=== PATIENT | female | born 1985 | race Caucasian/White ===

== ENCOUNTER 2016-09-10 09:27 | Emergency (ER) | payer SELFPAY ==
--- NOTE | 2016-09-10 10:45 | ER Document Report ---
ED Flu Like - General Chief Complaint: Headache Stated Complaint: COUGH, HEADACHE Time seen by provider: 10:42 Mode of Arrival: Ambulatory Information source: Patient Notes: 31-year-old female presents to ED for complaints of cough headache runny nose and decreased appetite for the last 2 days. Denies any fever nausea vomiting or diarrhea. TRAVEL OUTSIDE OF THE [place] IN LAST 30 DAYS: No - HPI Onset: Other - Thursday Timing/Duration: Intermittent Quality of pain: Achy Severity: Mild Pain Level: 1 Associated symptoms: Chills, Nonproductive cough, Headache, Rhinnorhea, Sinus pain/drainage Similar symptoms previously: Yes Recently seen / treated by doctor: No Past Medical History - General Information source: Patient - Social History Smoking Status: Former Smoker Cigarette use (# per day): No - states she does state but not cigarettes Chew tobacco use (# tins/day): No Smoking Education Provided: No Frequency of alcohol use: Occasional Drug Abuse: None Occupation: does not work Lives with: Parents Family History: Arthritis, CAD, DM, Hyperlipidemia, Hypertension, Malignancy Patient has suicidal ideation: No Patient has homicidal ideation: No - Past Medical History Cardiac Medical History: Reports: None Pulmonary Medical History: Reports: Hx Bronchitis, Hx Pneumonia EENT Medical History: Reports: None Neurological Medical History: Reports: None Endocrine Medical History: Reports: None Renal/ Medical History: Reports: None Malignancy Medical History: Reports: None GI Medical History: Reports: None Musculoskeltal Medical History: Reports Hx Musculoskeletal Trauma - Fifth toe fracture and wrist sprain Skin Medical History: Reports None Psychiatric Medical History: Reports: None Traumatic Medical History: Reports: Hx Fractures - Fifth toe Infectious Medical History: Reports: None Surgical Hx: Negative Past Surgical History: Reports: None - Immunizations Hx Diphtheria, Pertussis, Tetanus Vaccination: No Review of Systems - Review of Systems Constitutional: Recent illness EENT: Nose discharge, Sinus discharge Cardiovascular: No symptoms reported Respiratory: Cough Gastrointestinal: No symptoms reported Genitourinary: No symptoms reported Female Genitourinary: No symptoms reported Musculoskeletal: No symptoms reported Skin: No symptoms reported Hematologic/Lymphatic: No symptoms reported Neurological/Psychological: Headaches -: Yes All other systems reviewed and negative Physical Exam - Vital signs Vitals: Temp Pulse Resp BP Pulse Ox 98.6 F 92 20 143/79 H 100 09/10/16 09:37 09/10/16 09:37 09/10/16 09:37 09/10/16 09:37 09/10/16 09:37 Interpretation: Normal - General General appearance: Appears well, Alert - HEENT Head: Normocephalic, Atraumatic Eyes: Normal Pupils: PERRL Ears: Normal External canal: Normal Tympanic membrane: Normal Sinus: Normal Nasal: Purulent discharge, Swelling Mouth/Lips: Normal Mucous membranes: Normal Pharynx: Post nasal drainage Neck: Normal - Respiratory Respiratory status: No respiratory distress Chest status: Nontender Breath sounds: Nonproductive cough Chest palpation: Normal - Cardiovascular Rhythm: Regular Heart sounds: Normal auscultation Murmur: No - Abdominal Inspection: Normal Distension: No distension Bowel sounds: Normal Tenderness: Nontender Organomegaly: No organomegaly - Back Back: Normal, Nontender - Extremities General upper extremity: Normal inspection, Nontender, Normal color, Normal ROM , Normal temperature General lower extremity: Normal inspection, Nontender, Normal color, Normal ROM , Normal temperature, Normal weight bearing. No: Melita's sign - Neurological Neuro grossly intact: Yes Cognition: Normal Orientation: AAOx4 [place] Coma Scale Eye Opening: Spontaneous [place] Coma Scale Verbal: Oriented [place] Coma Scale Motor: Obeys Commands [place] Coma Scale Total: 15 Speech: Normal Motor strength normal: LUE, RUE, LLE, RLE Sensory: Normal - Psychological Associated symptoms: Normal affect, Normal mood - Skin Skin Temperature: Warm Skin Moisture: Dry Skin Color: Normal Course - Vital Signs Vital signs: Temp Pulse Resp BP Pulse Ox 98.6 F 92 20 143/79 H 100 09/10/16 09:37 09/10/16 09:37 09/10/16 09:37 09/10/16 09:37 09/10/16 09:37 Discharge - Discharge Clinical Impression: Upper respiratory infection Qualifiers: URI type: unspecified URI Qualified Code(s): J06.9 - Acute upper respiratory infection, unspecified Condition: Stable Disposition: HOME, SELF-CARE Instructions: Family Physicians / Practices Additional Instructions: UPPER RESPIRATORY ILLNESS: You have a viral infection of the respiratory passages -- a "cold." This common infection causes nasal congestion, drainage, and often sore throat and cough. It is highly contagious. The disease usually lasts about 10 to 14 days. There is no "cure" for the viral infection -- it must run its course. If there is a complication, such as bacterial infection in the nose, sinuses, middle ear, or bronchial tubes, antibiotics may be required. The antibiotics won't affect the virus. Drink plenty of fluids. A humidifier may help. An expectorant medication or decongestant may make you more comfortable. Use acetaminophen or ibuprofen for fever or aches. See the doctor if fever persists over two days, if there is any significant worsening of your symptoms, or if you simply fail to improve as expected. DECONGESTANT MEDICATION: A decongestant medicine has been suggested. Often this medicine is combined in the same tablet with an antihistamine or expectorant. This type of medicine is helpful in treating a bad cold or sinus condition, as well as in treatment of the nasal congestion of hay fever. It is not of much benefit for lung infections. Decongestant medicines are related to stimulants. They can cause an increase in blood pressure and heart rate. Persons with heart disease and high blood pressure should not take decongestants without discussing this with the physician. If you develop palpitations, chest pain, headache, or tremors, stop the medicine and consult your physician. COUGH-SUPPRESSANT & EXPECTORANT MEDICATION: You are to use a cough medication as needed for relief of symptoms. This medicine is a combination of an expectorant (to make the mucous thinner and more easily "coughed up") and a cough suppressant (to reduce the frequency of coughing). The cough-suppressant medicine is related to narcotics. You may experience mild nausea and sleepiness. Some patients who are very sensitive to narcotics may have stomach pain from this medicine. Taking the medicine with food reduces these side effects. Do not drive or work with machinery until you know how this medicine affects you. The expectorant should have no side effects. Iodine-containing expectorants (such as organidin) should not be taken by persons with active thyroid disease unless approved by your doctor. Call the doctor if you develop shortness of breath, hives, rash, itching, lightheadedness, or severe nausea and vomiting. USE OF ACETAMINOPHEN (Tylenol): Acetaminophen may be taken for pain relief or fever control. It's much safer than aspirin, offering a wider range of "safe" dosages. It is safe during . Some brand names are Tylenol, Panadol, Datril, Anacin 3, Tempra, and Liquiprin. Acetaminophen can be repeated every four hours. The following are maximum recommended dosages: >89 pounds or adults 650 mg to 900 mg Acetaminophen can be repeated every four hours. Maximum dose not to exceed 4000 mg a day. FOLLOW-UP CARE: If you have been referred to a physician for follow-up care, call the physician s office for an appointment as you were instructed or within the next two days. If you experience worsening or a significant change in your symptoms, notify the physician immediately or return to the Emergency Department at any time for re-evaluation. Forms: Elevated Blood Pressure
[2016-09-10 12:07] VITALS: BP 138/89
== END 2016-09-10 12:00 | disposition home or self-care (01) ==
LOC: ER 09:27
DX: J06.9 Acute upper respiratory infection, unspecified (principal); R51 Headache; Z87.891 Personal history of nicotine dependence
CPT/HCPCS: 87804; 99283

== ENCOUNTER 2017-06-19 13:25 | Emergency (ER) | payer SELFPAY ==
[2017-06-19 14:11] VITALS: BP 123/55
--- NOTE | 2017-06-19 15:11 | ER Document Report ---
HPI - HPI Pain Level: 3 Notes: Patient is a 31-year-old female presents the ED complaining of swollen red bumps to her right axilla 2-3 days. Patient has not noticed any streaks or purulent discharge. Patient states that she has had abscesses in the past that needed incision and drainage. Patient is very adamant about not having an incision and drainage performed with packing placed if I believe that it needs it and she just wants to try p.o. antibiotics. Patient states that she is otherwise approximately 8 weeks and does have occasional nausea and vomiting in the mornings. Patient is still eating and drinking without any difficulties. She still urinating normally and having normal bowel movements. She denies any history of MRSA. Denies any drug allergies. Denies any other significant past medical history. Denies any headache, fever, neck pain, URI, sore throat, chest pain, palpitations, syncope, cough, shortness of breath, wheeze, dyspnea, abdominal pain, diarrhea, urinary retention, dysuria, hematuria , loss of control of bowel or bladder, numbness/tingling, saddle anesthesia, muscle paralysis/weakness, or rash. - ROS Notes: REVIEW OF SYSTEMS: CONSTITUTIONAL : Denies fever, chills, or sweats. Denies recent illness. EENT: Denies eye, ear, throat, or mouth pain or symptoms. Denies nasal or sinus congestion or discharge. Denies throat, tongue, or mouth swelling or difficulty swallowing. CARDIOVASCULAR: Denies chest pain. Denies palpitations or racing or irregular heart beat. RESPIRATORY: Denies cough, cold, or chest congestion. Denies shortness of breath, difficulty breathing, or wheezing. GASTROINTESTINAL: Denies abdominal pain or distention. Denies nausea, vomiting , or diarrhea. Denies blood in vomitus, stools, or per rectum. Denies black, tarry stools. Denies constipation. GENITOURINARY: Denies difficulty urinating, painful urination, burning, frequency, blood in urine, or discharge. FEMALE GENITOURINARY: Denies vaginal bleeding, heavy or abnormal periods, irregular periods. Denies vaginal discharge or odor. MUSCULOSKELETAL: Denies back or neck pain or stiffness. Denies joint pain or swelling. SKIN: see hpi NEUROLOGICAL: Denies confusion or altered mental status. Denies passing out or loss of consciousness. Denies dizziness or lightheadedness. Denies headache. Denies weakness or paralysis or loss of use of either side. Denies problems with gait or speech. Denies sensory loss, numbness, or tingling. Denies seizures. PSYCHIATRIC: Denies anxiety or stress. Denies depression, suicidal ideation, or homicidal ideation. ALL OTHER SYSTEMS REVIEWED AND NEGATIVE. Dictation was performed using [employer] voice recognition software - REPRODUCTIVE Reproductive: REPORTS: : Past Medical History - Social History Smoking Status: Unknown if Ever Smoked Family History: Arthritis, CAD, DM, Hyperlipidemia, Hypertension, Malignancy Pulmonary Medical History: Reports: Hx Bronchitis, Hx Pneumonia Renal/ Medical History: Denies: Hx Peritoneal Dialysis Musculoskeltal Medical History: Reports Hx Musculoskeletal Trauma - Fifth toe fracture and wrist sprain Traumatic Medical History: Reports: Hx Fractures - Fifth toe - Immunizations Hx Diphtheria, Pertussis, Tetanus Vaccination: No Vertical Provider Document - CONSTITUTIONAL Agree With Documented VS: Yes Notes: PHYSICAL EXAMINATION: GENERAL: Well-appearing, well-nourished and in no acute distress. A&Ox4 HEAD: Atraumatic, normocephalic. EYES: Pupils equal round and reactive to light, extraocular movements intact, sclera anicteric, conjunctiva are normal. ENT: EAC clear b/l. TM's intact b/l without erythema, fluid, or perforation. Nares patent and without discharge. oropharynx clear without exudates. No tonsilar hypertrophy or erythema. Moist mucous membranes. No sinus tenderness. NECK: Normal range of motion, supple without lymphadenopathy. No rigidity/ meningismus. LUNGS: Breath sounds clear to auscultation bilaterally and equal. No wheezes rales or rhonchi. HEART: Regular rate and rhythm without murmurs, rubs, gallops. ABDOMEN: Soft, nontender, nondistended abdomen. No guarding, no rebound. No masses appreciated. Normal bowel sounds present. No CVA tenderness bilaterally. Musculoskeletal: FROM to passive/active. Strength 5+/5. Extremities: No cyanosis, clubbing, or edema b/l. Peripheral pulses 2+. Capillary refill less than 3 seconds. NEUROLOGICAL: Cranial nerves grossly intact. Normal speech, normal gait. Normal sensory, motor exams PSYCH: Normal mood, normal affect. SKIN: 2 small 1cm cellulitis/abscesses noted to the axilla. There is a larger 1.5-2cm abscess noted as well. + tenderness. No surrounding induration, streaks, or discharge. - INFECTION CONTROL TRAVEL OUTSIDE OF THE [place] IN LAST 30 DAYS: No - RESPIRATORY O2 Sat by Pulse Oximetry: 100 Course - Re-evaluation Re-evalutation: 06/19/17 15:09 Patient is an afebrile, well-hydrated, 31-year-old female who presents the ED with abscess/cellulitis to the right axilla without evidence of lymphangitis. Vitals are stable. PE is otherwise unremarkable. I believe that the larger abscess does warrant incision and drainage with packing placement. Patient declined incision and drainage and is wants p.o. antibiotics. Risks and benefits were thoroughly reviewed and that her symptoms may worsen and progress. Patient verbalized understanding of her risks and benefits. Patient states that she will take the antibiotics and watch closely. Patient understands that she needs to return to the ED/call general surgeon with ongoing or worsening symptoms. I will send her home with a prescription for clindamycin to take as directed. Conservative measures for symptoms with close monitoring. Recheck with your PCM in 2-3 days. Consider consult with a general surgeon. Return to the ED with any worsening/concerning symptoms otherwise as reviewed in discharge. Schedule an appoint with the TELECOMMUNICATIONS PROFESSIONAL as well. Patient is in agreement. - Vital Signs Vital signs: Temp Pulse Resp BP Pulse Ox 99.3 F 75 16 123/55 L 100 06/19/17 14:10 06/19/17 14:10 06/19/17 14:10 06/19/17 14:10 06/19/17 14:10 Discharge - Discharge Clinical Impression: Abscess of right axilla Condition: Stable Disposition: HOME, SELF-CARE Instructions: Abscess ([facility]), Clindamycin ([facility]) Additional Instructions: Keep the skin clean Wash with soap and water Tylenol/ibuprofen if needed Triple antibiotic ointment daily Epsom salt soaks Take medication as directed Monitor for any worsening symptoms Recheck with your PCM in 2-3 days Consider consult with General Surgeon for ongoing/worsening symptoms Return to the ED with any worsening symptoms and/or development of fever, headache, chest pain, palpitations, syncope, shortness of breath, trouble breathing, abdominal pain, n/v/d, abscess, purulent discharge, red streaks, worsening swelling, or other worsening symptoms that are concerning to you. Prescriptions: Clindamycin HCl [Cleocin 300 mg Capsule] 300 mg PO TID #30 capsule Ondansetron [Zofran Odt 4 mg Tablet] 1 - 2 tab PO Q4H PRN #15 tab.rapdis PRN Reason: For Nausea/Vomiting Referrals: BERNARDO MCGILL MD [ACTIVE STAFF] - Follow up as needed TORRES SILVA MD [ACTIVE STAFF] - Follow up as needed [facility] [Provider Group] - Follow up as needed
[2017-06-19] MEDS ORDERED: CLINDAMYCIN HCL 150 MG CAPSULE PO ONE (15:15)
== END 2017-06-19 15:37 | disposition home or self-care (01) ==
LOC: ER 13:25
DX: O99.719 Diseases of the skin and subcutaneous tissue complicating pregnancy, unspecified trimester (principal); L02.411 Cutaneous abscess of right axilla; L03.111 Cellulitis of right axilla; O21.9 Vomiting of pregnancy, unspecified; Z3A.00 Weeks of gestation of pregnancy not specified
CPT/HCPCS: 99282

== ENCOUNTER 2017-08-25 08:35 | Observation (INO) | payer SELFPAY ==
--- NOTE | 2017-08-25 09:42 | ER Document Report ---
HPI - HPI Patient complains to provider of: pelvic pain Onset: Yesterday Onset/Duration: Gradual Quality of pain: Cramping, Sharp Pain Level: 4 Context: Patient states she is currently 18 weeks and developed pelvic pain and vaginal bleeding yesterday. Patient states bleeding has been off and on. Patient is currently . Patient has not had any care because she states that she lost her identification and has been having difficulty obtaining identification so that she could be followed at the health department to get care established. Patient does take Subutex for chronic pain, and has had monthly prescriptions filled for the past several months. Patient states she did not take the Subutex today and that her chronic pain management provider told her that she could have something for pain if she had not taken the Subutex. Associated Symptoms: Other - Pelvic pain Exacerbated by: Denies Relieved by: Denies Similar symptoms previously: No Recently seen / treated by doctor: No - ROS ROS below otherwise negative: Yes Systems Reviewed and Negative: Yes All other systems reviewed and negative - CONSTITUTIONAL Constitutional: DENIES: Fever, Chills - NEURO Neurology: DENIES: Weakness - GASTROINTESTINAL Gastrointestinal: REPORTS: Abdominal Pain - REPRODUCTIVE Reproductive: REPORTS: :, Abnormal bleeding / discharge - DERM Skin Color: Normal Skin Problems: None Past Medical History - General Information source: Patient Last Menstrual Period: 04/12/17 - Social History Smoking Status: Current Every Day Smoker Chew tobacco use (# tins/day): No Frequency of alcohol use: None Drug Abuse: None Occupation: Cleaning Lives with: Family Family History: Arthritis, CAD, DM, Hyperlipidemia, Hypertension, Malignancy Patient has suicidal ideation: No Patient has homicidal ideation: No Pulmonary Medical History: Reports: Hx Bronchitis, Hx Pneumonia Renal/ Medical History: Denies: Hx Peritoneal Dialysis Musculoskeltal Medical History: Reports Hx Musculoskeletal Trauma - Fifth toe fracture and wrist sprain Traumatic Medical History: Reports: Hx Fractures - Fifth toe Surgical Hx: Negative - Immunizations Hx Diphtheria, Pertussis, Tetanus Vaccination: No Vertical Provider Document - CONSTITUTIONAL Agree With Documented VS: Yes Exam Limitations: No Limitations General Appearance: WD/WN, No Apparent Distress - INFECTION CONTROL TRAVEL OUTSIDE OF THE [place] IN LAST 30 DAYS: No - HEENT HEENT: Atraumatic, Normocephalic - NECK Neck: Normal Inspection. negative: Lymphadenopathy-Left, Lymphadenopathy-Right - RESPIRATORY Respiratory: Breath Sounds Normal, No Respiratory Distress O2 Sat by Pulse Oximetry: 100 - CARDIOVASCULAR Cardiovascular: Regular Rate, Regular Rhythm, No Murmur - GI/ABDOMEN Gastrointestinal: Abdomen Soft, Abdomen Tender - lower pelvic, No Organomegaly, Normal Bowel Sounds - BACK Back: Abnormal Inspection - Lower lumbar paraspinal tenderness. negative: CVA Tenderness-Right, CVA Tenderness-Left - MUSCULOSKELETAL/EXTREMETIES Musculoskeletal/Extremeties: MAEW, FROM - NEURO Level of Consciousness: Awake, Alert, Appropriate Motor/Sensory: No Motor Deficit - DERM Integumentary: Warm, Dry, No Rash Course - Re-evaluation Re-evalutation: 08/25/17 11:[address] Prieto, Dr. Prieto states that she will admit the patient to the second floor. Discussed patient's history of Subutex use and patient is insistent request for additional pain medication. Does recommend giving patient pain medication, recommends giving patient morphine. - Vital Signs Vital signs: Temp Pulse Resp BP Pulse Ox 97.8 F 72 14 136/78 H 100 08/25/17 08:39 08/25/17 08:39 08/25/17 08:39 08/25/17 08:39 08/25/17 08:39 - Laboratory Result Diagrams: 08/25/17 10:07 08/25/17 10:07 Laboratory results interpreted by me: 08/25/17 11:39 Labs- Entire Visit 08/25/17 08/25/17 08/25/17 09:30 10:07 10:07 WBC 7.4 RBC 3.91 Hgb 12.2 Hct 35.3 L MCV 90 MCH 31.1 MCHC 34.5 RDW 13.7 Plt Count 287 Seg Neutrophils % 60.9 Lymphocytes % 30.1 Monocytes % 6.4 Eosinophils % 2.1 Basophils % 0.5 Absolute Neutrophils 4.5 Absolute Lymphocytes 2.2 Absolute Monocytes 0.5 Absolute Eosinophils 0.2 Absolute Basophils 0.0 Sodium 140.8 Potassium 3.9 Chloride 103 Carbon Dioxide 28 Anion Gap 10 BUN 6 L Creatinine 0.55 Est GFR ( Amer) > 60 Est GFR (Non-Af Amer) > 60 Glucose 74 L Calcium 10.1 Total Bilirubin 0.3 Direct Bilirubin 0.3 Neonat Total Bilirubin Not Reportable Neonat Direct Bilirubin Not Reportable Neonat Indirect Bili Not Reportable AST 23 ALT 20 Alkaline Phosphatase 82 Total Protein 7.7 Albumin 4.4 Beta HCG, Quant 560.90 H Total Beta HCG POSITIVE Urine Color COLORLESS Urine Appearance CLEAR Urine pH 7.0 Ur Specific [place] 1.001 Urine Protein NEGATIVE Urine Glucose (UA) NEGATIVE Urine Ketones NEGATIVE Urine Blood NEGATIVE Urine Nitrite NEGATIVE Urine Bilirubin NEGATIVE Urine Urobilinogen NEGATIVE Ur Leukocyte Esterase NEGATIVE Urine WBC (Auto) 1 Urine RBC (Auto) 0 Squamous Epi Cells Auto <1 Urine Mucus (Auto) RARE Urine Ascorbic Acid NEGATIVE Blood Type Rhogam Indicated 08/25/17 10:07 WBC RBC Hgb Hct MCV MCH MCHC RDW Plt Count Seg Neutrophils % Lymphocytes % Monocytes % Eosinophils % Basophils % Absolute Neutrophils Absolute Lymphocytes Absolute Monocytes Absolute Eosinophils Absolute Basophils Sodium Potassium Chloride Carbon Dioxide Anion Gap BUN Creatinine Est GFR ( Amer) Est GFR (Non-Af Amer) Glucose Calcium Total Bilirubin Direct Bilirubin Neonat Total Bilirubin Neonat Direct Bilirubin Neonat Indirect Bili AST ALT Alkaline Phosphatase Total Protein Albumin Beta HCG, Quant Total Beta HCG Urine Color Urine Appearance Urine pH Ur Specific [place] Urine Protein Urine Glucose (UA) Urine Ketones Urine Blood Urine Nitrite Urine Bilirubin Urine Urobilinogen Ur Leukocyte Esterase Urine WBC (Auto) Urine RBC (Auto) Squamous Epi Cells Auto Urine Mucus (Auto) Urine Ascorbic Acid Blood Type A POSITIVE Rhogam Indicated RHOGAM NOT INDICATED - Diagnostic Test Radiology reviewed: Reports reviewed Discharge - Discharge Clinical Impression: demise, Pelvic pain Condition: Stable Disposition: ADMITTED INPATIENT Admitting Provider: [facility] Admitted: Post
[2017-08-25 10:03] LABS: APPEARANCE,URINE CLEAR; BILIRUBIN,URINE NEGATIVE (NEGATIVE); COLOR,URINE COLORLESS; GLUCOSE, URINE NEGATIVE (NEGATIVE); KETONES,URINE NEGATIVE (NEGATIVE); LEUKOCYTE ESTERASE,URINE NEGATIVE (NEGATIVE); NITRITE,URINE NEGATIVE (NEGATIVE); PROTEIN,URINE NEGATIVE (NEGATIVE); URINE SPECIFIC GRAVITY 1.001; UROBILINOGEN,URINE NEGATIVE mg/dL (<2.0)
[2017-08-25] MEDS ORDERED: ACETAMINOPHEN 325 MG TABLET PO ONE (10:12)
--- NOTE | 2017-08-25 10:25 | RADIOLOGY REPORT (SQ) ---
EXAM DESCRIPTION: U/S OB LIMITED COMPLETED DATE/TIME: 08/25/2017 10:11 am REASON FOR STUDY: pelvic pain, vag bleeding COMPARISON: None. TECHNIQUE: Static and Dynamic grayscale imaging performed of gravid uterus using transabdominal appr oach. Additional selected color Doppler and spectral images recorded. All stored on PACS. LIMITATIONS: A full anatomic survey was not performed. FINDINGS: EGA: 16 week 6 day. MARIS: 02/03/2016. EFW: 171 g. grams SLAVA: Adequate amount. HEART RATE: No cardiac activity. CERVICAL LENGTH: 3.8 cm. Closed. IMPRESSION: INTRAUTERINE DEMISE. ESTIMATED GESTATIONAL AGE 16 WEEK 6 DAY. Trimester of : Second trimester - 13 weeks 1 day to 27 weeks 6 days. TECHNICAL DOCUMENTATION: JOB ID: [id number] [employer]- All Rights Reserved
[2017-08-25 10:34] LABS: ABSOLUTE EOSINOPHILS # (AUTO) 0.2 10^3/uL (0.0-0.6); ABSOLUTE LYMPHOCYTES (AUTO) 2.2 10^3/uL (0.5-4.7); ABSOLUTE MONOCYTES (AUTO) 0.5 10^3/uL (0.1-1.4); ABSOLUTE NEUT (AUTO) 4.5 10^3/uL (1.7-8.2); BASOPHILS % (AUTO) 0.5 % (0-2); EOSINOPHILS % (AUTO) 2.1 % (0-6); HEMATOCRIT 35.3 % (36.0-47.0); HEMOGLOBIN 12.2 g/dL (12.0-15.5); LYMPHOCYTES % (AUTO) 30.1 % (13-45); MEAN CORPUSCULAR HEMOGLOBIN 31.1 pg (27.0-33.4); MEAN CORPUSCULAR HGB CONC 34.5 g/dL (32.0-36.0); MEAN CORPUSCULAR VOLUME 90 fl (80-97); MONOCYTES % (AUTO) 6.4 % (3-13); PLATELET COUNT 287 10^3/uL (150-450); RED BLOOD COUNT 3.91 10^6/uL (3.72-5.28); RED CELL DISTRIBUTION WIDTH 13.7 % (11.5-14.0); SEGMENTED NEUTROPHILS % (AUTO) 60.9 % (42-78); TOTAL CELLS COUNTED % (AUTO) 100 %; WHITE BLOOD COUNT 7.4 10^3/uL (4.0-10.5)
[2017-08-25 10:53] LABS: ALANINE AMINOTRANSFERASE 20 U/L (9-52); ALBUMIN 4.4 g/dL (3.5-5.0); ALKALINE PHOSPHATASE 82 U/L (38-126); ANION GAP 10 (5-19); ASPARTATE AMINO TRANSFERASE 23 U/L (14-36); BILIRUBIN,DIRECT 0.3 mg/dL (0.0-0.4); BILIRUBIN,TOTAL 0.3 mg/dL (0.2-1.3); BLOOD UREA NITROGEN 6 mg/dL (7-20); CALCIUM 10.1 mg/dL (8.4-10.2); CARBON DIOXIDE 28 mmol/L (22-30); CHLORIDE 103 mmol/L (98-107); GLUCOSE 74 mg/dL (75-110); POTASSIUM 3.9 mmol/L (3.6-5.0); SODIUM 140.8 mmol/L (137-145); TOTAL PROTEIN 7.7 g/dL (6.3-8.2)
[2017-08-25] MEDS ORDERED: MORPHINE SULFATE 10 MG/ML INJ IV ONE (11:39)
[2017-08-25] MEDS ORDERED: HYDROMORPHONE HCL INJ/PF 2 MG/ML AMPULE IV ONE (11:50)
--- NOTE | 2017-08-25 14:43 | PDOC H&P ---
History of Present Illness Admission Date/PCP: 08/25/17 12:18 Patient complains of: spotting and some cramping History of Present Illness: CALI HAN is a 32 year old female @ 18 wk EGA who presented to the ER this AM w/ complaints of vaginal bleeding and cramping. Sono revealed a fetus measuring 16 6/7 w/ absent heart motion. Patient is complaining of increased pain and cramping but no further bleeding Past Medical History Pulmonary Medical History: Reports: Bronchitis, Pneumonia Musculoskeltal Medical History: Reports: Other - scoliosis Psychiatric Medical History: Reports: Substance Abuse Psychiatric History Note: on suboxone for opiod dependency. Past Surgical History Past Surgical History: Reports: None Social History Information Source: Patient Smoking Status: Current Every Day Smoker Cigarettes Packs Per Day: 2 Frequency of Alcohol Use: None Hx Recreational Drug Use: Yes - denies any current ilicit drug use Drugs: None - Advance Directive Resuscitation Status: Full Code Family History Family History: Arthritis, CAD, DM, Hyperlipidemia, Hypertension, Malignancy Parental Family History Reviewed: Yes Children Family History Reviewed: Yes Sibling(s) Family History Reviewed.: Yes Medication/Allergy Home Medications: Buprenorphine HCl [Subutex 8 mg Sublingual Tablet] 1 tab SL DAILY 08/25/17 No122/Iron/Folic Acid [ Multi Tablet] 1 tab PO DAILY 08/25/17 Allergies/Adverse Reactions: No Known Allergies Allergy (Verified 08/25/17 08:36) Physical Exam - Physical Exam Vital Signs: Temp Pulse Resp BP Pulse Ox 98.4 F 87 22 H 113/69 100 08/25/17 13:52 08/25/17 13:52 08/25/17 13:52 08/25/17 13:52 08/25/17 13:52 Result Impressions: Obstetrics Ultrasound 08/25/17 09:17 IMPRESSION: INTRAUTERINE DEMISE. ESTIMATED GESTATIONAL AGE 16 WEEK 6 DAY. Trimester of : Second trimester - 13 weeks 1 day to 27 weeks 6 days. Assessment & Plan - Diagnosis (1) demise Is this a current diagnosis for this admission?: Yes (2) Pelvic pain Is this a current diagnosis for this admission?: Yes - Time Time Spent: 30 to 50 Minutes Anticipated discharge: Home Within: within 48 hours - Inpatient Certification Based on my medical assessment, after consideration of the patient's comorbidities, presenting symptoms, or acuity I expect that the services needed warrant INPATIENT care.: Yes I certify that my determination is in accordance with my understanding of Medicare's requirements for reasonable and necessary INPATIENT services [42 CFR 412.3e].: Yes Medical Necessity: Need Close Monitoring Due to Risk of Patient Decompensation, Risk of Complication if Not Cared For in Hospital - Plan Summary Plan Summary: will initiate delivery of POC with cytotec. D/W patient regarding her pain control and she voices understanding that good pain control will be difficult in light of her opiod addiction treatment due to receptor saturation. Did assure her that we would do our best to make her as comfortable as possible but a pain free state would be highly unlikely. Voiced understanding. Counseled on possibility of a procedure if unsuccessful with medical management including D&C for removal of tissue or placenta. Voiced understanding
[2017-08-25] MEDS ORDERED: PROMETHAZINE HCL INJ 25 MG/1 ML VIAL IV PRN (14:44)
[2017-08-25] MEDS ORDERED: HYDROMORPHONE HCL INJ/PF 2 MG/ML AMPULE IV PRN (14:44)
[2017-08-25] MEDS ORDERED: OXYCODONE-ACETAMINOPHEN 5-325 MG TABLET PO PRN (14:44)
[2017-08-25] MEDS ORDERED: DEXTROSE 40% GEL 15 GM TUBE PO PRN ×2 (14:57)
[2017-08-25] MEDS ORDERED: GLUCAGON,HUMAN RECOMB 1 MG INJ SUBCUT PRN (14:57)
[2017-08-25] MEDS ORDERED: DEXTROSE 50%-WATER 25 GM/50 ML DISP.SYRIN IV PRN ×2 (14:57)
[2017-08-25] MEDS: HYDROMORPHONE HCL INJ/PF 2 MG/ML AMPULE IV PRN ×2 (16:26→21:15)
[2017-08-25] MEDS: MISOPROSTOL 0.2 MG TABLET PR SCH ×2 (16:28→21:27)
[2017-08-25] MEDS: OXYCODONE-ACETAMINOPHEN 5-325 MG TABLET PO PRN (18:54)
[2017-08-25] MEDS: ACETAMINOPHEN 100 ML IV SCH (21:27)
[2017-08-26] MEDS: RINGERS SOLUTION,LACTATED 1,000 ML IV PRN ×2 (00:04→07:08)
[2017-08-26] MEDS ORDERED: MISOPROSTOL 0.2 MG TABLET ONE (01:35)
[2017-08-26] MEDS: MISOPROSTOL 0.2 MG TABLET PR SCH ×2 (01:37→06:47)
[2017-08-26] MEDS: HYDROMORPHONE HCL INJ/PF 2 MG/ML AMPULE IV PRN ×3 (02:15→10:13)
[2017-08-26] MEDS: OXYCODONE-ACETAMINOPHEN 5-325 MG TABLET PO PRN ×2 (04:17→08:26)
[2017-08-26] MEDS: ACETAMINOPHEN 100 ML IV SCH ×2 (05:28→13:00)
[2017-08-26] MEDS ORDERED: MISOPROSTOL 0.2 MG TABLET PV SCH (10:00)
--- NOTE | 2017-08-26 10:30 | Progress Note ---
Provider Note Provider Note: S:CNM called to room, pt delivering demised fetus. Cord clamped, fetus cut free , pt assisted to bathroom, spontaneous delivery of placenta. Pt assisted back to bed O:VSS, afebrile fundus firm Bleeding stable A: s/p delivery of 16 week iufd Stable condition P: Pt to have lunch Monitor bleeding Consider discharge later today
[2017-08-26 11:41] LABS: INTERNATIONAL RATION (INR) 0.94; PROTHROMBIN TIME 13.3 SEC (11.4-15.4)
[2017-08-26 11:42] LABS: PARTIAL THROMBOPLASTIN TIME 32.5 SEC (23.5-35.8)
[2017-08-26] MEDS ORDERED: MISOPROSTOL 0.2 MG TABLET PO SCH (12:00)
[2017-08-26 12:56] VITALS: BP 125/76
--- NOTE | 2017-08-31 11:57 | PDOC DISCHARGE SUMMARY ---
Final Diagnosis Discharge Date: 08/26/17 - Final Diagnosis (1) demise Is this a current diagnosis for this admission?: Yes Discharge Data - Discharge Medication Home Medications: Buprenorphine HCl [Subutex 8 mg Sublingual Tablet] 1 tab SL DAILY 08/25/17 No122/Iron/Folic Acid [ Multi Tablet] 1 tab PO DAILY 08/25/17 Procedures: None Intrapartum Procedure(s): Spontaneous Vaginal Delivery - Diagnosis Test Laboratory: Temp Pulse Resp BP Pulse Ox 98.9 F 75 18 125/76 99 08/26/17 13:11 08/26/17 13:11 08/26/17 13:11 08/26/17 13:11 08/26/17 13:11 - Discharge information/Instructions Discharge Activity: Activity As Tolerated, Pelvic Rest, No tub bath Discharge Diet: As Tolerated Disposition: HOME, SELF-CARE Follow up with: [facility] in: 1
== END 2017-08-26 15:05 | disposition home or self-care (01) ==
LOC: ER 08:35 → EH 12:18 → INTOOBSV 12:18 → 2N 13:28
PROVIDERS: ADMIT Obstetrics & Gynecology; ATTEND Obstetrics & Gynecology
DX: O02.1 Missed abortion (principal); O99.332 Smoking (tobacco) complicating pregnancy, second trimester; F17.210 Nicotine dependence, cigarettes, uncomplicated; O99.322 Drug use complicating pregnancy, second trimester; F11.20 Opioid dependence, uncomplicated; G89.29 Other chronic pain; M41.9 Scoliosis, unspecified; O09.32 Supervision of pregnancy with insufficient antenatal care, second trimester; Z3A.16 16 weeks gestation of pregnancy
CPT/HCPCS: 99285; 96374; 86900; 86901; 36415 ×2; 84702; 85025; 85610; 85730; 80053; 81001; 76815; G0378 ×2; J1170 ×2; J7120; J0131

== ENCOUNTER 2018-01-26 16:10 | Emergency (ER) | payer SELFPAY ==
--- NOTE | 2018-01-26 18:03 | ER Document Report ---
HPI - HPI Pain Level: 2 Notes: Patient is a 32-year-old female no significant past medical history who presents to the ED complaining of redness and swelling to her right axilla which she believes is an abscess that has been there over the last several days. Patient states that she believes it is starting to get better, but wanted it looked at. Patient states that her pain does not radiate and she has not noticed any red streaking. Patient states that on occasion she will have some nausea but has not been vomiting. She is eating and drinking without any difficulties. She is urinating normally and having normal bowel movements. Patient states that she does have a concern for possible bacterial vaginosis that she had this in the past. Patient states that she has not been sexually active in the last 4-5 months. She has not had any vaginal bleeding. Denies any headache, fever, neck pain, URI, sore throat, chest pain, palpitations, syncope, cough, shortness of breath, wheeze, dyspnea, abdominal pain, nausea/ vomiting/diarrhea, urinary retention, dysuria, hematuria. - ROS Systems Reviewed and Negative: Yes All other systems reviewed and negative - REPRODUCTIVE Reproductive: REPORTS: Abnormal bleeding / discharge - discharge and odor. DENIES: : Past Medical History - Social History Smoking Status: Current Every Day Smoker Chew tobacco use (# tins/day): No Frequency of alcohol use: None Drug Abuse: None Family History: Arthritis, CAD, DM, Hyperlipidemia, Hypertension, Malignancy Patient has suicidal ideation: No Patient has homicidal ideation: No Pulmonary Medical History: Reports: Hx Bronchitis, Hx Pneumonia Renal/ Medical History: Denies: Hx Peritoneal Dialysis Musculoskeletal Medical History: Reports Hx Musculoskeletal Trauma - Fifth toe fracture and wrist sprain Psychiatric Medical History: Denies: Hx Depression Traumatic Medical History: Reports: Hx Fractures - Fifth toe - Immunizations Hx Diphtheria, Pertussis, Tetanus Vaccination: No Vertical Provider Document - CONSTITUTIONAL Agree With Documented VS: Yes Notes: PHYSICAL EXAMINATION: GENERAL: Well-appearing, well-nourished and in no acute distress. LUNGS: Breath sounds clear to auscultation bilaterally and equal. No wheezes rales or rhonchi. HEART: Regular rate and rhythm without murmurs, rubs, gallops. ABDOMEN: Soft, nontender, nondistended abdomen. No guarding, no rebound. No masses appreciated. Normal bowel sounds present. No CVA tenderness bilaterally. : deferred, pt declined and just wants to perform self-swabs. Musculoskeletal: FROM to passive/active. Strength 5+/5. Extremities: No cyanosis, clubbing, or edema b/l. Peripheral pulses 2+. Capillary refill less than 3 seconds. NEUROLOGICAL: Cranial nerves grossly intact. Normal speech, normal gait. Normal sensory, motor exams PSYCH: Normal mood, normal affect. SKIN: + 2.5cm abscess with induration and minimal fluctuance to the rt axilla. + tenderness. No streaks or discharge. - INFECTION CONTROL TRAVEL OUTSIDE OF THE [place] IN LAST 30 DAYS: No Course - Re-evaluation Re-evalutation: 01/26/18 18:03 I did review with patient that I would like to perform a complete incision and drainage to her right axilla abscess. Patient is very adamant that she does not like needles or scalpels. Pt does not want any I&D performed. I was able to review with her the risk and benefit of her decision and that this issue could become worse and she could be put in the hospital with sepsis. Patient then agreed to have an incision and drainage performed with a needle only at this time. 01/26/18 20:07 Patient is an afebrile, well-hydrated, 32-year-old female who presents to the ED with bacterial vaginosis and abscess to rt axilla who is also found to be despite her claim of not being sexually active. Vitals are acceptable without any significant tachycardia, tachypnea, or hypoxia. PE is otherwise unremarkable. Wound cx obtained. I&D performed with 18g needle. Again reviewed with patient that it would be better for a complete I&D, but pt declined and would not allow me much time to express any purulence from within. UA unremarkable. Urine HCG showed positive despite pt saying she has not been sexually active in 4-5mos. HCG quant ordered and positive. See wet mount results. Chlam/gonorrhea tests are pending. Patient declined wanting any treatment for chlamydia/gonorrhea at this time and is aware that she may have the return if any test comes back positive. Patient is nontoxic-appearing is tolerating p.o. without any difficulties. Abd is soft and non-tender. No other labs or imaging warranted at this time based on H&P. Low suspicion/risk for acute appendicitis, bowel obstruction, acute cholecystitis, acute cholangitis, perforated diverticulitis, incarcerated hernia, pancreatitis, perforated ulcer, peritonitis, sepsis, pelvic inflammatory disease, ectopic , tubo-ovarian abscess, ovarian torsion, or other systemic emergent condition at this time. Patient is aware that her condition can change from initial presentation and she needs to monitor symptoms closely and seek medical attention if any acute changes. I will send her home with prescription for Flagyl, cleocin. Conservative measures otherwise for symptoms. Recheck with your PCM in 48 hours and OBGYN in 3-5 days. Return to the ED with any worsening /concerning symptoms otherwise as reviewed in discharge. Patient is in agreement. - Vital Signs Vital signs: Temp Pulse Resp BP Pulse Ox 98.4 F 70 18 123/71 97 01/26/18 16:20 01/26/18 16:20 01/26/18 16:20 01/26/18 16:20 01/26/18 16:20 Procedures - Incision and Drainage Rt axilla Time completed: 19:05 - pt tolerated proc well, no complications, but pt would not allow for adequate expression of contents Type: Simple I&D procedure: Betadine prep applied Incision Method: Incision made with needle - 18g Amount/type of drainage: scant purulent/bloody Discharge - Discharge Clinical Impression: Abscess, Bacterial vaginosis Condition: Stable Disposition: HOME, SELF-CARE Instructions: Abscess ([facility]), Cephalexin ([facility]), Trimethoprim-Sulfa ([facility]), Vaginosis, Bacterial ([facility]) Additional Instructions: You declined a complete incision and drainage today. As a reminder, your infection could worsen which could result in sepsis and severe illness which may require hospitalization and management. Keep the skin clean Wash with soap and water Tylenol/ibuprofen if needed Triple antibiotic ointment daily Take medication as directed Monitor for any worsening symptoms Recheck with your PCM in 48 hours Consider consult with General Surgeon for ongoing/worsening symptoms Maintain fluid intake Proper hygenic technique Keep the skin clean Safe sexual practices with condoms everytime Tylenol/ibuprofen as needed Check in with the health department this week for further testing if warranted Your chlamydia/Ghon test are pending and you will be notified if positive results; you may call in 1 day for the results as well Return immediately if symptoms worsen F/u with your OBGYN in 3-5 days for a recheck Return to the ED with any worsening symptoms and/or development of fever, headache, chest pain, palpitations, syncope, shortness of breath, trouble breathing, abdominal pain, n/v/d, abscess, purulent discharge, red streaks, worsening swelling, pelvic pain, increased vaginal discharge/odor/bleeding, or other worsening symptoms that are concerning to you. Prescriptions: Clindamycin HCl [Cleocin 300 mg Capsule] 300 mg PO TID #30 capsule Metronidazole [Flagyl] 500 mg PO BID #14 tablet Forms: Smoking Cessation Education Referrals: [facility]Provider Group[facility] - Follow up in 3-5 days Family Doctor, Your [Other] - 01/28/18
[2018-01-26 18:36] LABS: APPEARANCE,URINE CLEAR; BILIRUBIN,URINE NEGATIVE (NEGATIVE); COLOR,URINE YELLOW; GLUCOSE, URINE NEGATIVE (NEGATIVE); KETONES,URINE NEGATIVE (NEGATIVE); LEUKOCYTE ESTERASE,URINE NEGATIVE (NEGATIVE); NITRITE,URINE NEGATIVE (NEGATIVE); PROTEIN,URINE NEGATIVE (NEGATIVE)
[2018-01-26 18:52] LABS: BACTERIA (WET MOUNT) 4+ BACTERIA SEEN; EPITHELIALS (WET MOUNT) 3+ EPITHELIALS SEEN; T.VAGINALIS (WET MOUNT) NO TRICHOMONAS SEEN; WBCS (WET MOUNT) 1+ WBCS SEEN; YEAST (WET MOUNT) NO YEAST SEEN
[2018-01-26 20:11] LABS: CHLAM PCR NOT DETECTED (NOT DETECT); GON PCR NOT DETECTED (NOT DETECT)
[2018-01-26 20:20] VITALS: BP 132/87
== END 2018-01-26 20:19 | disposition home or self-care (01) ==
LOC: ER 16:10
PROC: 0H9BXZZ Drainage of Right Upper Arm Skin, External Approach (ICD-10-PCS; principal; 2018-01-26)
DX: L02.411 Cutaneous abscess of right axilla (principal); N76.0 Acute vaginitis; B96.89 Other specified bacterial agents as the cause of diseases classified elsewhere; F17.200 Nicotine dependence, unspecified, uncomplicated
CPT/HCPCS: 36415; 81001; 81025; 84702; 87070; 87075; 87077; 87186; 87205; 87210; 87491; 87591; 99283

== ENCOUNTER 2018-07-19 08:11 | Emergency (ER) | payer SELFPAY ==
[2018-07-19] MEDS ORDERED: PENICILLIN V POTASSIUM 500 MG TABLET PO ONE (09:18)
[2018-07-19] MEDS ORDERED: LIDOCAINE 2% VISCOUS SOLN 20 ML UDCUP PO ONE (09:18)
--- NOTE | 2018-07-19 09:18 | ER Document Report ---
ED Oral Problem - General Chief Complaint: Sore Throat Stated Complaint: SORE THROAT, TOOTHACHE Time Seen by Provider: 07/19/18 09:02 Mode of Arrival: Ambulatory Information source: Patient Notes: 33-year-old female presents to ED for complaint of sore throat times 2 days with cough congestion. She also has multiple decayed teeth that are broken off at the gumline. She has redness and inflammation around these teeth. She is complaining of severe pain to the upper left jaw where she has multiple decayed teeth. She states this started when she was with her son. She states she also eats candy and sweet drinks all day. Patient is alert oriented respirations regular and unlabored speaking in full sentences TRAVEL OUTSIDE OF THE [place] IN LAST 30 DAYS: No - HPI Patient complains to provider of: Toothache Onset: Other - Dental pain long time sore throat 2 days Onset: Gradual Quality of pain: Sharp, Throbbing Severity: Moderate Pain Level: 2 Associated symptoms: Toothache Worsened by: Nothing Relieved by: Nothing Similar symptoms previously: Yes Recently seen / treated by doctor/dentist: No - Related Data Allergies/Adverse Reactions: codeine Allergy (Unknown, Verified 07/19/18 08:24) Past Medical History - General Information source: Patient - Social History Smoking Status: Former Smoker - States she just quit smoking because of her teeth Chew tobacco use (# tins/day): No Frequency of alcohol use: None Drug Abuse: None Lives with: Family Family History: Arthritis, CAD, DM, Hyperlipidemia, Hypertension, Malignancy Patient has suicidal ideation: No Patient has homicidal ideation: No - Past Medical History Cardiac Medical History: Reports: None Pulmonary Medical History: Reports: Hx Bronchitis, Hx Pneumonia EENT Medical History: Reports: None Neurological Medical History: Reports: None Endocrine Medical History: Reports: None Renal/ Medical History: Reports: None Malignancy Medical History: Reports: None GI Medical History: Reports: None Musculoskeletal Medical History: Reports Hx Musculoskeletal Trauma - Fifth toe fracture and wrist sprain Skin Medical History: Reports Hx Eczema Psychiatric Medical History: Reports: None Traumatic Medical History: Reports: Hx Fractures - Fifth toe Infectious Medical History: Reports: None - Immunizations Hx Diphtheria, Pertussis, Tetanus Vaccination: No Review of Systems - Review of Systems Constitutional: No symptoms reported EENT: No symptoms reported, Dental problem Cardiovascular: No symptoms reported Respiratory: No symptoms reported Gastrointestinal: No symptoms reported Genitourinary: No symptoms reported Female Genitourinary: No symptoms reported Musculoskeletal: No symptoms reported Skin: No symptoms reported Hematologic/Lymphatic: No symptoms reported Neurological/Psychological: No symptoms reported -: Yes All other systems reviewed and negative Physical Exam - Vital signs Vitals: Temp Pulse Resp BP Pulse Ox 98.7 F 62 16 115/73 100 07/19/18 08:28 07/19/18 08:28 07/19/18 08:28 07/19/18 08:28 07/19/18 08:28 Interpretation: Normal - General General appearance: Appears well, Alert - HEENT Head: Normocephalic, Atraumatic Eyes: Normal Pupils: PERRL Ears: Normal External canal: Normal Tympanic membrane: Normal Sinus: Normal Nasal: Purulent discharge, Swelling Mouth/Lips: Caries Mucous membranes: Normal Teeth diagram: 1 - Entire mouth has multiple decayed teeth that are broken at the gumline and black. She has moderate gingivitis throughout all teeth. She does have a severe pain in the left upper jaw even though the left lower jaw looks more tender and has more decayed teeth. Pharynx: Post nasal drainage - Respiratory Respiratory status: No respiratory distress Chest status: Nontender Breath sounds: Normal Chest palpation: Normal - Cardiovascular Rhythm: Regular Heart sounds: Normal auscultation Murmur: No - Abdominal Inspection: Normal Distension: No distension Bowel sounds: Normal Tenderness: Nontender Organomegaly: No organomegaly - Back Back: Normal, Nontender - Extremities General upper extremity: Normal inspection, Nontender, Normal color, Normal ROM, Normal temperature General lower extremity: Normal inspection, Nontender, Normal color, Normal ROM, Normal temperature, Normal weight bearing. No: Melita's sign - Neurological Neuro grossly intact: Yes Cognition: Normal Orientation: AAOx4 Paola Coma Scale Eye Opening: Spontaneous Hollins Coma Scale Verbal: Oriented Paola Coma Scale Motor: Obeys Commands Paola Coma Scale Total: 15 Speech: Normal Motor strength normal: LUE, RUE, LLE, RLE Sensory: Normal - Psychological Associated symptoms: Normal affect, Normal mood - Skin Skin Temperature: Warm Skin Moisture: Dry Skin Color: Normal Course - Re-evaluation Re-evalutation: 07/19/18 09:31 Patient was encouraged to decrease the amount of sugar and sweet drinks she is eating and drinking as this is not helping her dental situation. She has quit smoking. Her assessment is consistent with a upper respiratory infection. I have spoken with Alvaro Elizabeth the inventory planner who has spoken with the patient and set her up with [facility] for her teeth and for her health care. Alvaro stated that the [facility] will call her and set up appointments for follow-up. Patient was treated with penicillin VK and viscous lidocaine for her dental pain and infection at this time. Patient will be discharged home. Patient was also given instructions on using Tylenol and Motrin for her dental pain. - Vital Signs Vital signs: Temp Pulse Resp BP Pulse Ox 98.7 F 62 16 115/73 100 07/19/18 08:28 07/19/18 08:28 07/19/18 08:28 07/19/18 08:28 07/19/18 08:28 Discharge - Discharge Clinical Impression: Pain due to dental caries URI (upper respiratory infection) Qualifiers: URI type: unspecified URI Qualified Code(s): J06.9 - Acute upper respiratory infection, unspecified Condition: Stable Disposition: HOME, SELF-CARE Instructions: Family Physicians / Practices Additional Instructions: TOOTHACHE: Your pain is due to dental decay. The tooth must be repaired in order for you to feel better. You will, therefore, be referred to a dentist. We do not have dentists on the staff at [facility]. Severe swelling or drainage around a tooth usually means a dental abscess. This also requires evaluation and treatment by the dentist, but antibiotics may be prescribed while awaiting dental treatment. You should be rechecked immediately if you develop major swelling of the face, increasing pain, a lump in the jaw or gums, headache, difficulty swallowing, or fever. PENICILLIN V K: You have been given a prescription for Penicillin VK. Your physician has determined that this is the best antibiotic for your condition. Pen VK can be taken with meals, however more of the antibiotic gets into the bloodstream if it's taken on an empty stomach. Penicillin usually has no side effects. However, allergy to penicillins is common. If you have had an allergic reaction to any drug of the penicillin family, you should never take any other penicillin. Notify your doctor at once if you develop hives, itching, swelling, faintness, or shortness of breath. Ibuprofen Ibuprofen is an excellent, safe drug for pain control. In addition, it has potent antiinflammatory effects which are beneficial, especially in the treatment of injuries, arthritis, or tendonitis. It's best to take ibuprofen with food. Persons with ulcer disease or allergy to aspirin should notify their physician of this before taking ibuprofen. Take the medication exactly as prescribed. Don't take additional doses unless instructed to do so by your doctor. If you develop wheezing, shortness of breath, hives, faintness, stomach pain, vomiting, or dark black stools, return for re-evaluation at once. You have been given a syringe full of viscous lidocaine for your dental pain. This can be applied to the teeth and the gums about every 3-4 hours. If you use it more often than that it will erode your gums and make you have more pain. Most important treatment for your teeth is a dentist. No treatment that the emergency room is going to give you is going to last very long the teeth need to be removed. FOLLOW-UP CARE: You have been referred for follow-up care to the dentists listed below. Call the dentists office for an appointment as you were instructed or within the next two days. If you experience worsening or a significant change in your symptoms, notify the physician immediately or return to the Emergency Department at any time for re-evaluation. [facility] [address] [place], [place] [facility] [address] [place] [address] [facility] [address] [facility] [address] [facility] [address] [facility] [place] [address] Doctor's [facility]. [email or web address] [address] [place] [address] Thursday- 8:00am to 5:00 pm Will see patients from other [facility]. Charges based on income and family size and accepts Medicare, Medicaid, and Insurances Will pull molars [facility] [address] Hours of Operation 8:00 am - 4:30 pm weekdays The following dental offices accept Medicaid: [facility] Dr. Joel [address] Jennings Dr. Red Dr. Law Naun Green, [place], and Fina oral surgery Dr. Bobby ([place]) Dr. Thakur ([place]) [facility] Drs. Arriaza ([place]) Dr. Ulrich ([place]) [facility] Dr. Dozier ([place]) Drs. Cotto and ([place]) Medicaid Care Line Prescriptions: Penicillin V Potassium [Penicillin Vk 500 mg Tablet] 500 mg PO BID #20 tablet Forms: Smoking Cessation Education
[2018-07-19 09:41] VITALS: BP 115/73
== END 2018-07-19 09:37 | disposition home or self-care (01) ==
LOC: ER 08:11
DX: K02.9 Dental caries, unspecified (principal); J06.9 Acute upper respiratory infection, unspecified; Z88.6 Allergy status to analgesic agent
CPT/HCPCS: 99282; J3490

== ENCOUNTER 2018-08-11 19:09 | Emergency (ER) | payer SELFPAY ==
[2018-08-11 19:37] VITALS: BP 120/81
[2018-08-11] MEDS ORDERED: DIAZEPAM 5 MG TABLET PO ONE (21:04)
--- NOTE | 2018-08-11 21:04 | ER Document Report ---
HPI - HPI Patient complains to provider of: Head injury, headaches Time Seen by Provider: 08/11/18 20:32 Pain Level: 3 Context: Patient is a 33-year-old female that comes to the emergency department for chief complaint of a head injury about 4-1/2 days ago where a picture frame fell off the shelf and landed on the left posterior part of her scalp, this caused a bleeding wound at that time, she states that she felt okay for the first day and a half but then she started getting tightness that felt like it was "going down the neck into the shoulders", limited range of motion of the neck turning to the side on both sides but worse on the right, and the sensation of headaches in a "band" across her forehead and at the eyes causing intermittent nausea. She denies vomiting, she did not pass out at the initial injury, she states after the initial injury when the bleeding stopped she thought she was fine. She denies any focal numbness or weakness, she denies any fevers or chills. She is up-to-date on her tetanus within 5 years. - REPRODUCTIVE Reproductive: DENIES: : Past Medical History - General Information source: Patient - Social History Smoking Status: Never Smoker Chew tobacco use (# tins/day): No Frequency of alcohol use: None Drug Abuse: None Lives with: Family Family History: Arthritis, CAD, DM, Hyperlipidemia, Hypertension, Malignancy Patient has suicidal ideation: No Patient has homicidal ideation: No Pulmonary Medical History: Reports: Hx Bronchitis, Hx Pneumonia Renal/ Medical History: Denies: Hx Peritoneal Dialysis Musculoskeletal Medical History: Reports Hx Musculoskeletal Trauma - Fifth toe fracture and wrist sprain Skin Medical History: Reports Hx Eczema Psychiatric Medical History: Denies: Hx Depression Traumatic Medical History: Reports: Hx Fractures - Fifth toe - Immunizations Hx Diphtheria, Pertussis, Tetanus Vaccination: No Vertical Provider Document - CONSTITUTIONAL General Appearance: WD/WN, No Apparent Distress, Thin - INFECTION CONTROL TRAVEL OUTSIDE OF THE [place] IN LAST 30 DAYS: No - HEENT HEENT: Normal ENT Exam, Normocephalic. negative: Atraumatic - Approximately 1 cm horizontal laceration over the left parieto-occipital scalp without surrounding erythema, no hematoma, no other findings of trauma - NECK Neck: Normal Inspection - RESPIRATORY Respiratory: Breath Sounds Normal, No Respiratory Distress - CARDIOVASCULAR Cardiovascular: Regular Rate, Regular Rhythm - GI/ABDOMEN Gastrointestinal: Abdomen Soft, Abdomen Non-Tender - BACK Back: negative: Normal Inspection - Non-tender back generally on palpation. There is tenderness over the right paracervical musculature and extending to both trapezius muscles, there is pain mainly with range of motion laterally to the right. Flexion and extension intact. No midline tenderness, no saddle anesthesia, no signs of trauma. Normal upper and lower extremity range of motion, normal strength, normal distal neurovascular exam. Course - Re-evaluation Re-evalutation: Patient does have a healed scalp wound over the posterior lateral parietal occipital scalp area. She has tender paracervical muscles with decreased range of motion, she describes symptoms similar to a tension headache, she is alert and very well-appearing. Normal neurological exam. I discussed options with patient. Because she she is so well-appearing and she has had an extended period since the injury with symptoms more consistent with a tension headache I have a lower suspicion of intracranial hemorrhage, subarachnoid hemorrhage, I have very low suspicion of meningitis with no infection symptoms. Patient states she is ready to leave, she was provided with medication here as a muscle relaxant, she will be prescribed medications for home, I discussed head injury and postconcussive symptoms expectations, muscle spasms, tension headaches. Discussed return precautions in detail. Patient states satisfaction and agreement with plan. Stable at time of discharge. - Vital Signs Vital signs: Temp Pulse Resp BP Pulse Ox 99.0 F 73 20 120/81 100 08/11/18 19:36 08/11/18 19:36 08/11/18 19:36 08/11/18 19:36 08/11/18 19:36 Discharge - Discharge Clinical Impression: Scalp wound Qualifiers: Encounter type: initial encounter Open wound type: laceration Foreign body presence: without foreign body Qualified Code(s): S01.01XA - Laceration without foreign body of scalp, initial encounter Head injury Qualifiers: Encounter type: initial encounter Qualified Code(s): S09.90XA - Unspecified injury of head, initial encounter Headache Qualifiers: Headache type: unspecified Headache chronicity pattern: acute headache Intractability: not intractable Qualified Code(s): R51 - Headache Condition: Stable Disposition: HOME, SELF-CARE Additional Instructions: Your evaluation shows a healing scalp wound, indicates injury and spasm of the paracervical and trapezius muscles, worse on the right, this appears to have triggered tension headaches. In addition to this I suspect you are having some postconcussive headaches. You have been given a dose of diazepam, apply heat to the right side of your neck and shoulder, do gentle stretches, avoid lifting and twisting if possible. Take the cyclobenzaprine muscle relaxer at night to help with sleep and muscle spasms, take the Fioricet if needed for headaches. Symptoms should gradually resolve with time. Follow-up with primary care. Return if you worsen including vomiting, severe worsening headache, numbness in your arms, fever, or any other concerning or worsening symptoms. Prescriptions: Cyclobenzaprine HCl [Flexeril 5 mg Tablet] 1 - 2 tab PO QHS PRN #12 tablet PRN Reason: Butalb/Acetaminophen/Caffeine [Fioricet (50-325-40 mg) Tablet] 1 tab PO Q4HP PRN #30 tab PRN Reason:
== END 2018-08-11 22:33 | disposition home or self-care (01) ==
LOC: ER 19:09
DX: S01.01XA Laceration without foreign body of scalp, initial encounter (principal); R51 Headache; W20.8XXA Other cause of strike by thrown, projected or falling object, initial encounter; Y93.89 Activity, other specified
CPT/HCPCS: 99283

== ENCOUNTER 2019-07-16 21:33 | Emergency (ER) | payer SELFPAY ==
--- NOTE | 2019-07-16 23:09 | ER Document Report ---
ED Medical Screen (RME) - General Chief Complaint: Pelvic Problem Stated Complaint: STOMACH PROBLEMS/PAIN Time Seen by Provider: 07/16/19 23:05 Mode of Arrival: Ambulatory Information source: Patient Notes: Patient presents complaining of lower pelvic pain for the past year. Patient reports painful intercourse. Patient denies any vaginal bleeding or discharge. Patient states for the past 6 months she has had occasional episodes of urinary urgency and occasional incontinence. I have greeted and performed a rapid initial assessment of this patient. A comprehensive ED assessment and evaluation of the patient, analysis of test results and completion of the medical decision making process will be conducted by additional ED providers. TRAVEL OUTSIDE OF THE [place] IN LAST 30 DAYS: No - Related Data Allergies/Adverse Reactions: codeine Allergy (Unknown, Verified 07/19/18 08:24) Past Medical History Pulmonary Medical History: Reports: Hx Bronchitis, Hx Pneumonia Renal/ Medical History: Denies: Hx Peritoneal Dialysis Musculoskeltal Medical History: Reports Hx Musculoskeletal Trauma - Fifth toe fracture and wrist sprain Skin Medical History: Reports Hx Eczema Psychiatric Medical History: Denies: Hx Depression Traumatic Medical History: Reports: Hx Fractures - Fifth toe - Immunizations Hx Diphtheria, Pertussis, Tetanus Vaccination: No Physical Exam - Vital signs Vitals: Temp Pulse Resp BP Pulse Ox 98.5 F 66 20 119/95 H 100 07/16/19 21:58 07/16/19 21:58 07/16/19 21:58 07/16/19 21:58 07/16/19 21:58 - Abdominal Tenderness: Tender - Lower pelvic Course - Vital Signs Vital signs: Temp Pulse Resp BP Pulse Ox 98.5 F 66 20 119/95 H 100 07/16/19 21:58 07/16/19 21:58 07/16/19 21:58 07/16/19 21:58 07/16/19 21:58
[2019-07-17 00:30] LABS: ABSOLUTE EOSINOPHILS # (AUTO) 0.2 10^3/uL (0.0-0.6); ABSOLUTE LYMPHOCYTES (AUTO) 2.6 10^3/uL (0.5-4.7); ABSOLUTE MONOCYTES (AUTO) 0.7 10^3/uL (0.1-1.4); ABSOLUTE NEUT (AUTO) 2.8 10^3/uL (1.7-8.2); BASOPHILS % (AUTO) 0.7 % (0-2); EOSINOPHILS % (AUTO) 3.4 % (0-6); HEMOGLOBIN 12.6 g/dL (12.0-15.5); LYMPHOCYTES % (AUTO) 40.7 % (13-45); MEAN CORPUSCULAR HEMOGLOBIN 30.4 pg (27.0-33.4); MEAN CORPUSCULAR HGB CONC 34.2 g/dL (32.0-36.0); MEAN CORPUSCULAR VOLUME 89 fl (80-97); MONOCYTES % (AUTO) 11.4 % (3-13); PLATELET COUNT 238 10^3/uL (150-450); RED BLOOD COUNT 4.16 10^6/uL (3.72-5.28); RED CELL DISTRIBUTION WIDTH 13.5 % (11.5-14.0); SEGMENTED NEUTROPHILS % (AUTO) 43.8 % (42-78); TOTAL CELLS COUNTED % (AUTO) 100 %; WHITE BLOOD COUNT 6.4 10^3/uL (4.0-10.5)
--- NOTE | 2019-07-17 00:41 | RADIOLOGY REPORT (SQ) ---
EXAM DESCRIPTION: US PELVIS TRANSVAGINAL COMPLETED DATE/TME: 07/16/2019 23:08 CLINICAL HISTORY: 34 years Female, pelvic pain Comparison: None. Technique: Transvaginal. LIMITATIONS: None. FINDINGS: 8-cm uterus, 1.2-cm endometrial stripe thickness, 4.3-cm right ovary, and 6.1 x 2.5 x 2.6-cm left ovary appear normal in size, shape, echotexture, and vascularity. No free fluid. IMPRESSION: Normal pelvic sonogram.
[2019-07-17 00:48] LABS: ANION GAP 9 (5-19); BLOOD UREA NITROGEN 11 mg/dL (7-20); CALCIUM 9.7 mg/dL (8.4-10.2); CARBON DIOXIDE 30 mmol/L (22-30); CHLORIDE 98 mmol/L (98-107); GLUCOSE 95 mg/dL (75-110); POTASSIUM 4.4 mmol/L (3.6-5.0)
[2019-07-17 02:00] LABS: CHLAM PCR NOT DETECTED (NOT DETECT)
[2019-07-17 02:28] LABS: APPEARANCE,URINE CLEAR; BILIRUBIN,URINE NEGATIVE (NEGATIVE); COLOR,URINE YELLOW; GLUCOSE, URINE NEGATIVE (NEGATIVE); KETONES,URINE NEGATIVE (NEGATIVE); LEUKOCYTE ESTERASE,URINE NEGATIVE (NEGATIVE); NITRITE,URINE NEGATIVE (NEGATIVE); PROTEIN,URINE NEGATIVE (NEGATIVE); UROBILINOGEN,URINE NEGATIVE mg/dL (<2.0)
--- NOTE | 2019-07-17 04:30 | ER Document Report ---
ED GI/ - General Chief Complaint: Pelvic Problem Stated Complaint: STOMACH PROBLEMS/PAIN Time Seen by Provider: 07/16/19 23:05 Primary Care Provider: [facility] [Provider Group] - Follow up as needed Mode of Arrival: Ambulatory Notes: Patient is a 34-year-old female that comes emergency department for chief complaint of lower abdominal/pelvic pain for the past year. She states that almost every time she has sexual intercourse she has a sharp pain which forces her to stop. She denies any vaginal bleeding or vaginal discharge. She denies dysuria but occasionally she will have frequency and urgency. She denies fever/chills, nausea/vomiting, she reports normal bowel movements. She denies any surgeries or diagnosed medical history, denies any daily medications, denies smoking, alcohol, recreational drugs. TRAVEL OUTSIDE OF THE [place] IN LAST 30 DAYS: No - Related Data Allergies/Adverse Reactions: codeine Allergy (Unknown, Verified 07/19/18 08:24) Past Medical History - General Information source: Patient - Social History Smoking Status: Never Smoker Frequency of alcohol use: None Drug Abuse: None Lives with: Family Family History: Arthritis, CAD, DM, Hyperlipidemia, Hypertension, Malignancy Patient has suicidal ideation: No Patient has homicidal ideation: No Pulmonary Medical History: Reports: Hx Bronchitis, Hx Pneumonia Renal/ Medical History: Denies: Hx Peritoneal Dialysis Musculoskeletal Medical History: Reports Hx Musculoskeletal Trauma - Fifth toe fracture and wrist sprain Skin Medical History: Reports Hx Eczema Psychiatric Medical History: Denies: Hx Depression Traumatic Medical History: Reports: Hx Fractures - Fifth toe - Immunizations Hx Diphtheria, Pertussis, Tetanus Vaccination: No Review of Systems - Review of Systems Constitutional: No symptoms reported EENT: No symptoms reported Cardiovascular: No symptoms reported Respiratory: No symptoms reported Gastrointestinal: See HPI Genitourinary: See HPI Female Genitourinary: See HPI Musculoskeletal: No symptoms reported Skin: No symptoms reported Hematologic/Lymphatic: No symptoms reported Neurological/Psychological: No symptoms reported Physical Exam - Vital signs Vitals: Temp Pulse Resp BP Pulse Ox 98.5 F 66 20 119/95 H 100 07/16/19 21:58 07/16/19 21:58 07/16/19 21:58 07/16/19 21:58 07/16/19 21:58 - Notes Notes: GENERAL: Sleeping and easily aroused HEAD: Normocephalic, atraumatic. EYES: Pupils equal, round, and reactive to light. Extraocular movements intact. ENT: Oral mucosa moist, tongue midline. Oropharynx unremarkable. Airway patent. LUNGS: Clear to auscultation bilaterally, no wheezes, rales, or rhonchi. No respiratory distress. HEART: Regular rate and rhythm. No murmur ABDOMEN: Soft, non-tender. Non-distended. Bowel sounds present in all 4 quadrants. No guarding or rigidity GENITOURINARY: Deferred EXTREMITIES: Moves all 4 extremities spontaneously. No edema, normal radial and dorsalis pedis pulses bilaterally. No cyanosis. BACK: no cervical, thoracic, lumbar midline tenderness. No saddle anesthesia, normal distal neurovascular exam. Moves all extremities in full range of motion. NEUROLOGICAL: Alert and oriented x3. Normal speech. Cranial nerves II through XII grossly intact. PSYCH: Normal affect, normal mood. SKIN: Warm, dry, normal turgor. No rashes or lesions noted. Course - Re-evaluation Re-evalutation: Patient with chronic intermittent pelvic pain. She has a soft benign abdomen with no current tenderness and she has no current complaints. Sleeping and easily aroused. Unremarkable vital signs. CBC, chemistry, urinalysis unremarkable, test negative. Ultrasound without any acute findings. Based on patient's reported symptoms I suspect endometriosis, possibly chronic bowel disorder such as IBS. I discussed with patient the work-up in detail, discussed recommendation and options. Provided with Toradol for possible endometriosis symptoms, discussed QUALITATIVE EXECUTIVE RESEARCHER referral, discussed return precautions. Patient states understanding and agreement. - Vital Signs Vital signs: Temp Pulse Resp BP Pulse Ox 98.6 F 82 16 114/70 100 07/17/19 04:49 07/17/19 04:49 07/17/19 04:49 07/17/19 04:49 07/17/19 04:49 - Laboratory Result Diagrams: 07/17/19 00:08 07/17/19 00:08 Discharge - Discharge Clinical Impression: Pelvic pain Condition: Stable Disposition: HOME, SELF-CARE Additional Instructions: Your ultrasound, laboratory work-up, and evaluation are not showing any concerning findings at this time. Based on your painful intercourse, irregular and painful menstrual cycles, and negative work-up I do suspect endometriosis is a possibility. You have been provided medication to take as needed for pain, please follow-up with your QUALITATIVE EXECUTIVE RESEARCHER referral for additional management. Return for any concerning symptoms including fever, severe worsening pain, vomiting, or any other concerning symptoms. Prescriptions: Ketorolac Tromethamine [Toradol 10 mg Tablet] 10 mg PO Q8HP PRN #24 tablet PRN Reason: Referrals: [facility] [Provider Group] - Follow up as needed
[2019-07-17 04:50] VITALS: BP 114/70
== END 2019-07-17 04:52 | disposition home or self-care (01) ==
LOC: ER 21:33
DX: R10.2 Pelvic and perineal pain (principal); G89.29 Other chronic pain; N94.10 Unspecified dyspareunia; Z88.6 Allergy status to analgesic agent; Z88.5 Allergy status to narcotic agent
CPT/HCPCS: 36415; 76830; 80048; 81001; 84703; 85025; 87491; 87591; 93976; 99284

== ENCOUNTER 2020-05-11 17:40 | Emergency (ER) | payer SELFPAY ==
--- NOTE | 2020-05-11 18:05 | ER Document Report ---
ED Medical Screen (RME) - General Chief Complaint: Fever Stated Complaint: FEVER/CONGESTION/SORE THROAT/NAUSEA/HEADACHE Time Seen by Provider: 05/11/20 18:00 Mode of Arrival: Ambulatory Information source: Patient Notes: 34-year-old female presents to ED for cough cold congestion sinus congestion with fever earlier but not today. She states she is taking her allergy medicines with no relief. States she has not recently seen a provider. She has not been tested for Covid. Will get flu strep chest x-ray and Covid test and she will be seen by another provider. The patient was evaluated during the global Covid 19 pandemic, and that diagnosis was suspected/considered upon their initial presentation. Their evaluation, treatment and testing was consistent with current guidelines for patients who present with complaints or symptoms that may be related to Covid 19. I have greeted and performed a rapid initial assessment of this patient. A comprehensive ED assessment and evaluation of the patient, analysis of test results and completion of medical decision making process will be conducted by an additional ED providers. TRAVEL OUTSIDE OF THE [place] IN LAST 30 DAYS: No - Related Data Allergies/Adverse Reactions: codeine Allergy (Unknown, Verified 07/19/18 08:24) Past Medical History Pulmonary Medical History: Reports: Hx Bronchitis, Hx Pneumonia Renal/ Medical History: Denies: Hx Peritoneal Dialysis Musculoskeltal Medical History: Reports Hx Musculoskeletal Trauma - Fifth toe fracture and wrist sprain Skin Medical History: Reports Hx Eczema Psychiatric Medical History: Denies: Hx Depression Traumatic Medical History: Reports: Hx Fractures - Fifth toe - Immunizations Hx Diphtheria, Pertussis, Tetanus Vaccination: No Physical Exam - Vital signs Vitals: Temp Pulse Resp BP Pulse Ox 98.1 F 59 L 18 109/67 100 05/11/20 17:45 05/11/20 17:45 05/11/20 17:45 05/11/20 17:45 05/11/20 17:45 Course - Vital Signs Vital signs: Temp Pulse Resp BP Pulse Ox 98.1 F 59 L 18 109/67 100 05/11/20 17:45 05/11/20 17:45 05/11/20 17:45 05/11/20 17:45 05/11/20 17:45
--- NOTE | 2020-05-11 18:53 | RADIOLOGY REPORT (SQ) ---
EXAM DESCRIPTION: CHEST SINGLE VIEW IMAGES COMPLETED DATE/TIME: 05/11/2020 6:44 pm REASON FOR STUDY: cough COMPARISON: None. EXAM PARAMETERS: NUMBER OF VIEWS: One view. TECHNIQUE: Single frontal radiographic view of the chest acquired. RADIATION DOSE: NA LIMITATIONS: None. FINDINGS: LUNGS AND PLEURA: No opacities, masses or pneumothorax. No pleural effusion. MEDIASTINUM AND HILAR STRUCTURES: No masses. Contour normal. HEART AND VASCULAR STRUCTURES: Heart normal in size. Normal vasculature. BONES: No acute findings. HARDWARE: None in the chest. OTHER: No other significant finding. IMPRESSION: NO ACUTE RADIOGRAPHIC FINDING IN THE CHEST. TECHNICAL DOCUMENTATION: JOB ID: [id number] 2010 [employer]- All Rights Reserved Reading location - IP/workstation name: [email or web address]
--- NOTE | 2020-05-11 19:20 | ER Document Report ---
ED General - General Chief Complaint: Congestion Stated Complaint: FEVER/CONGESTION/SORE THROAT/NAUSEA/HEADACHE Time Seen by Provider: 05/11/20 18:00 Mode of Arrival: Ambulatory Notes: 34 year old female is here with fatigue and generalized weakness. No fever or chills. Runny nose and nonproductive cough. No known sick contacts. No covid exposure that she is aware of. She denies chest pain. 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 TRAVEL OUTSIDE OF THE [place] IN LAST 30 DAYS: No - Related Data Allergies/Adverse Reactions: codeine Allergy (Unknown, Verified 05/11/20 18:21) Past Medical History - General Information source: Patient - Social History Smoking Status: Never Smoker Chew tobacco use (# tins/day): No Frequency of alcohol use: None Drug Abuse: None Family History: Arthritis, CAD, DM, Hyperlipidemia, Hypertension, Malignancy Patient has homicidal ideation: No Pulmonary Medical History: Reports: Hx Bronchitis, Hx Pneumonia Renal/ Medical History: Denies: Hx Peritoneal Dialysis Musculoskeletal Medical History: Reports Hx Musculoskeletal Trauma - Fifth toe fracture and wrist sprain Skin Medical History: Reports Hx Eczema Psychiatric Medical History: Denies: Hx Depression Traumatic Medical History: Reports: Hx Fractures - Fifth toe - Immunizations Hx Diphtheria, Pertussis, Tetanus Vaccination: No Review of Systems - Review of Systems Constitutional: No symptoms reported EENT: No symptoms reported Cardiovascular: No symptoms reported Respiratory: No symptoms reported Gastrointestinal: No symptoms reported Genitourinary: No symptoms reported Female Genitourinary: No symptoms reported Musculoskeletal: No symptoms reported Skin: No symptoms reported Hematologic/Lymphatic: No symptoms reported Neurological/Psychological: No symptoms reported Physical Exam - Vital signs Vitals: Temp Pulse Resp BP Pulse Ox 98.1 F 59 L 18 109/67 100 05/11/20 17:45 05/11/20 17:45 05/11/20 17:45 05/11/20 17:45 05/11/20 17:45 Interpretation: Normal - General General appearance: Appears well, Alert - HEENT Head: Normocephalic, Atraumatic Eyes: Normal Pupils: PERRL - Respiratory Respiratory status: No respiratory distress Chest status: Nontender Breath sounds: Normal Chest palpation: Normal - Cardiovascular Rhythm: Regular Heart sounds: Normal auscultation Murmur: No - Abdominal Inspection: Normal Distension: No distension Bowel sounds: Normal Tenderness: Nontender Organomegaly: No organomegaly - Back Back: Normal, Nontender - Extremities General upper extremity: Normal inspection, Nontender, Normal color, Normal ROM, Normal temperature General lower extremity: Normal inspection, Nontender, Normal color, Normal ROM, Normal temperature, Normal weight bearing. No: Melita's sign - Neurological Neuro grossly intact: Yes Cognition: Normal Orientation: AAOx4 [place] Coma Scale Eye Opening: Spontaneous [place] Coma Scale Verbal: Oriented [place] Coma Scale Motor: Obeys Commands [place] Coma Scale Total: 15 Speech: Normal Motor strength normal: LUE, RUE, LLE, RLE Sensory: Normal - Psychological Associated symptoms: Normal affect, Normal mood - Skin Skin Temperature: Warm Skin Moisture: Dry Skin Color: Normal Course - Re-evaluation Re-evalutation: 05/11/20 21:24 MDM Nontoxic 34 year old with cough and fatigue. She is well appearing here and may safely follow up. - Vital Signs Vital signs: Temp Pulse Resp BP Pulse Ox 98.1 F 59 L 18 109/67 100 05/11/20 18:19 05/11/20 17:45 05/11/20 17:45 05/11/20 17:45 05/11/20 17:45 - Diagnostic Test Radiology reviewed: Reports reviewed Discharge - Discharge Clinical Impression: Bronchitis Fatigue Qualifiers: Fatigue type: unspecified Qualified Code(s): R53.83 - Other fatigue Condition: Stable Disposition: HOME, SELF-CARE Instructions: COVID-19 Guidance for Persons Under Investigation, Acetaminophen, Bronchitis ([facility]) Additional Instructions: Take your medicine as directed. Plenty of fluids, Please return here for chest pain, shortness of breath or other problems or concerns. Finish the antibiotic. As discussed self isolate until you are better and while your covid test is pending. Your medicines have been transmitted to [facility].
[2020-05-11 20:16] LABS: A TYPE INFLUENZA AG NEGATIVE (NEGATIVE); B INFLUENZA AG NEGATIVE (NEGATIVE)
[2020-05-11] MEDS ORDERED: AZITHROMYCIN 250 MG TABLET PO ONE ×2 (21:27→21:28)
[2020-05-11 21:45] VITALS: BP 116/75
== END 2020-05-11 21:40 | disposition home or self-care (01) ==
LOC: ER 17:40
DX: J40 Bronchitis, not specified as acute or chronic (principal); R53.83 Other fatigue; R53.1 Weakness; R09.89 Other specified symptoms and signs involving the circulatory and respiratory systems; R05 Cough; Z87.01 Personal history of pneumonia (recurrent); Z88.6 Allergy status to analgesic agent; Z88.5 Allergy status to narcotic agent; Z20.828 Contact with and (suspected) exposure to other viral communicable diseases
CPT/HCPCS: 99284; 87070; 87880; 87635; 87804; 71045; C9803